=== PATIENT | female | born 1990 | race Caucasian/White ===

== ENCOUNTER 2022-10-12 10:50 | Emergency (ER) | payer MEDICAID ==
[~2022-10-12] VITALS: Ht 154.9 cm; Wt 75.0 kg
[2022-10-12 10:59] VITALS: BP 112/71
[2022-10-12] MEDS ORDERED: SUMAtriptan succ. 6 MG/0.5ml vial SQ ONE (12:55)
[2022-10-12] MEDS ORDERED: normal saline 1000ML IV soln IVB ONE (12:55)
[2022-10-12] MEDS ORDERED: ketorolac trometh. 30mg/ml inj. IV ONE (14:15)
== END 2022-10-12 15:36 | disposition home or self-care (01) ==
LOC: ER 10:51
DX: G43.909 Migraine, unspecified, not intractable, without status migrainosus (principal); F17.200 Nicotine dependence, unspecified, uncomplicated; Z88.0 Allergy status to penicillin; Z88.1 Allergy status to other antibiotic agents
CPT/HCPCS: 96361; 96372; 96374; 99284; J1885; J3030; J7030

== ENCOUNTER 2023-09-07 09:44 | Emergency (ER) | payer MEDICAID ==
[~2023-09-07] VITALS: Ht 157.5 cm; Wt 79.1 kg
[2023-09-07 11:05] LABS: BILIRUBIN,URINE SMALL (Neg); CLARITY,URINE CLOUDY (Clear); COLOR,URINE YELLOW (Yellow); GLUCOSE, URINE NEGATIVE (Neg); LEUKOCYTE ESTERASE ,URINE NEGATIVE (Neg); NITRITES, URINE NEGATIVE (Neg); OCCULT BLOOD,URINE SMALL (Neg); PROTEIN,URINE 30 mg/dl (Neg); UROBILINOGEN,URINE 0.2 E.U/dL (0.2-1.0)
[2023-09-07 11:06] LABS: UA COLLECTION TYPE CLN CATCH MIDSTREAM
[2023-09-07 11:07] LABS: KETONES,URINE >80 mg/dl (Neg)
[2023-09-07 11:12] LABS: BACTERIA,URINE FEW /HPF (Neg); FINE GRANULAR CAST 0-3 /LPF (NEGATIVE); MUCUS STRANDS MANY /LPF (Neg); RBC,URINE 0-2 /HPF (0-2); SQUAMOUS EPITHELIAL CELL,UR MODERATE /LPF (FEW)
[2023-09-07 11:12] LABS: BASOPHILS # (AUTO) 0.1 X10'3 (0-0.2); BASOPHILS % (AUTO) 0.4 % (0-1); EOSINOPHILS % (AUTO) 0.3 % (0-6); LYMPHOCYTES # (AUTO) 1.3 X10'3 (1.1-4.8); LYMPHOCYTES % (AUTO) 9.8 % (21-51); MEAN CORPUSCULAR HEMOGLOBIN 28.1 PG (27.0-31.0); MEAN CORPUSCULAR HGB CONC 33.3 g/dL (33.0-36.5); MEAN CORPUSCULAR VOLUME 84.3 FL (78-98); MEAN PLATELET VOLUME 7.5 FL (7.4-10.4); MONOCYTES # (AUTO) 0.9 X10'3 (0-0.9); MONOCYTES % (AUTO) 6.4 % (2-12); NEUTROPHILS # (AUTO) 11.3 X10'3 (1.8-7.7); NEUTROPHILS % (AUTO) 83.1 % (42-75); PLATELET COUNT 281 X10'3 (140-440); RED BLOOD COUNT 4.62 X10'6 (4.20-5.60); RED CELL DISTRIBUTION WIDTH 13.5 % (11.5-14.5); WHITE BLOOD COUNT 13.5 X10'3 (4.5-11.0)
[2023-09-07 11:19] VITALS: BP 102/62
[2023-09-07 12:49] VITALS: PULSE 102; RESP 18; TEMP 97; O2SAT 97
== END 2023-09-07 12:45 | disposition home or self-care (01) ==
LOC: ER 09:44
DX: U07.1 COVID-19 (principal); M79.18 Myalgia, other site; G43.909 Migraine, unspecified, not intractable, without status migrainosus; Z88.0 Allergy status to penicillin; Z88.1 Allergy status to other antibiotic agents; Z79.899 Other long term (current) drug therapy
CPT/HCPCS: 36415; 71045; 81001; 84484; 85025; 87088; 87502; 87503; 87811; 93005; 99285

== ENCOUNTER 2025-02-16 18:34 | Emergency (ER) | payer MEDICAID ==
[~2025-02-16] VITALS: Ht 157.5 cm; Wt 74.1 kg
[2025-02-16 18:36] VITALS: BP 132/81; PULSE 100; RESP 15; TEMP 98.6; O2SAT 98
[2025-02-16] MEDS ORDERED: NO HOME MEDS (18:39)
--- NOTE | 2025-02-16 19:12 | Physician Documentation ---
History of Present Illness ~ Chief Complaint: Ear Pain Stated Complaint: EAR PAIN Time Seen by MD: 18:44 Primary Medical Doctor: [facility] HPI This 34-year-old female presented with three days of sore throat, left ear pain, and subjective fever. Patient reports that she does develop a intermittent cough when lying down as secretions irritate her throat causing her to cough. Medication Reconciliation Allergies: Coded Allergies: Penicillins (Unverified Allergy, Unknown, 02/16/25) >5 years, anaphylaxis, treatment required. amoxicillin (Unverified Allergy, Unknown, 02/16/25) Miscellaneous Medications Home Med List (No Home Medications), (Reported) Past Medical History Past Medical History: Migraine Past Surgical History: no surgical history Alcohol Use: None Drug Use: none Lives with: Other Lives In: Home Occupation: employed Review of Systems ROS Sore throat and ear pain as stated above in the HPI, otherwise all systems are reviewed and negative. Physical Exam Vital Signs: Temperature: 98.6, Source: Temporal, Heart Rate: 100, Respiratory Rate: 15, BP: 132/81, Pulse Oximetry: 98, Weight: 74.100 Physical Exam VITALS: Reviewed and as above. GENERAL: Alert, nontoxic appearing, no apparent distress. HEENT: 1+ tonsils with erythema and white patches to left tonsil, cervical lymphadenopathy with tenderness greatest in the left side, bilateral TMs clear with normal light reflex, auditory canals noninflamed RESPIRATORY: No increased work of breathing, no respiratory distress, speaking in full clear sentences Progress Results/Orders Results/Orders Orders - [facility] Cult Throat + R/O Beta Strep (02/16/25 19:39) Completed Orders - [facility] Strep A Rapid (02/16/25 18:40) Ketorolac Trometh 30mg/Ml Vial (Toradol (02/16/25 18:45) Medications Received in ER Medications (Trade) Dose Ordered Sig/Jojo Route PRN Reason Start Time Stop Time Status Last Admin Dose Admin (Toradol inj. 30mg/ml) 15 mg ONCE ONCE IM 02/16/25 18:45 02/16/25 18:46 DC 02/16/25 19:18 15 MG Vital Signs 02/16/25 18:36 Temp 98.6 Pulse 100 Resp 15 B/P (MAP) 132/81 Pulse Ox 98 Laboratory Tests Test 02/16/25 18:41 Group A Streptococcus Rapid Negative Medical Decision Making Findings This otherwise healthy and well-appearing 34-year-old female presented with three days of sore throat and left ear pain, physical exam demonstrated mildly swollen and erythematous tonsils with a small white patch observed on the left tonsil, a strep test was obtained and negative which makes me suspect this is a viral pharyngitis, TMs were clear with normal light reflex bilaterally I suspect ear pain is referred pain from one pharyngitis. I have low clinical suspicion for peritonsillar abscess, uvulitis, or deep tissue space infection of the neck due to no muffled voice or drooling, uvula midline. Remainder of physical exam was benign and vital signs stable patient is appropriate for outpatient follow up. Patient was medicated prior to discharge. Patient provided home care instructions and careful return to care precautions which she verbalized understanding of. Ear Diff. Dx: Considerations: Include: Cerumen impaction, Otitis externa, Barotrauma, Otitis media Throat Diff Dx: Considerations: Include: Epiglottitis, Isaías's angina, Peritonsillar abscess, Peritonsillar cellulitis, Pharyngitis-strepococcal Departure Time of Disposition: 19:17 Disposition: 01 HOME / SELF CARE / HOMELESS Impression: Primary Impression: Sore throat Condition: Improved Discharge Instructions: Sore Throat Additional Instructions: You may use ibuprofen and Tylenol as needed for pain or fever as directed by the [id number] packaging instructions. Warm liquids, honey, and salt water gargles may help your sore throat. Please follow up with your primary care provider in the next few days. Please return to the emergency department for any new or worsening concerning symptoms including but not limited to worsening pain, inability to swallow, difficulty breathing, or if you develop a fever over 100.4 that does not lower with ibuprofen or Tylenol. Referrals: NO PRIMARY CARE PROVIDER (PCP) Education Educated: Patient Educated regarding: diagnosis, treatment, prognosis, need for follow up Signature Scribe Signature: No Scribe Attestation: The note accurately reflects work and decisions made by me.JIE Olguin 02/16/25 22:51 [facility] Feb 16, 2025 19:12
[2025-02-16 19:13] LABS: STREP A SCREEN NEGATIVE (Neg)
[2025-02-16] MEDS: ketorolac trometh 30MG/ML vial 30 MG/ML VIAL IM ONE (19:18)
== END 2025-02-16 19:29 | disposition home or self-care (01) ==
LOC: ER 18:34
DX: J02.9 Acute pharyngitis, unspecified (principal); H92.02 Otalgia, left ear; G43.909 Migraine, unspecified, not intractable, without status migrainosus; Z88.0 Allergy status to penicillin
CPT/HCPCS: 87081; 87880; 96372; 99283; J1885